=== PATIENT | male | born 1945 | race Caucasian/White ===

== ENCOUNTER 2018-04-21 14:49 | Emergency (ER) | payer OTHER ==
[~2018-04-21] VITALS: Ht 170.2 cm; Wt 76.0 kg
[2018-04-21] MEDS ORDERED: CRESTOR20 MG PO (15:04)
[2018-04-21] MEDS ORDERED: ADALAT CC PO (15:04)
[2018-04-21] MEDS ORDERED: PROCA PO (15:04)
[2018-04-21] MEDS ORDERED: JANUMET XR1 TA1 PO (15:05)
[2018-04-21] MEDS ORDERED: TUDORZA PR400 MCG/AC IN (15:06)
[2018-04-21] MEDS ORDERED: SYMBICORT1 AE1 IN (15:07)
[2018-04-21] MEDS ORDERED: PERINDOPRIL PO (15:08)
[2018-04-21 16:11] LABS: HEMATOCRIT 34.2 % (39.0-50.0); HEMOGLOBIN 11.6 g/dl (14.0-18.0); IMMATURE GRANULOCYTES 0.5 % (0.0-5.0); MEAN CELL VOLUME 94.5 fL CALC (80.0-100.0); MEAN CORPUSCULAR HGB CONC 33.9 g/L CALC (32.0-36.0); NEUT# 4.21 thou/uL (1.82-7.42); RED BLOOD COUNT 3.62 mill/uL (4.70-6.10); RED CELL DISTRI WIDTH 13.3 % (11.5-15.5)
[2018-04-21 16:12] LABS: URINE BILIRUBIN - DIPSTICK NEGATIVE (NEGATIVE); URINE BLOOD DIPSTICK NEGATIVE (NEGATIVE); URINE COLOR YELLOW; URINE GLUCOSE - DIPSTICK NEGATIVE (NEGATIVE); URINE KETONE NEGATIVE (NEGATIVE); URINE LEUK ESTERASE NEGATIVE (NEGATIVE); URINE NITRITE - DIPSTICK NEGATIVE (Negative); URINE PROTEIN - DIPSTICK NEGATIVE (NEG-TRACE); URINE UROBILINOGEN - DIPSTICK 0.2 E.U./dL (0.2)
[2018-04-21 16:28] LABS: ALBUMIN 4.3 g/dL (3.2-5.0); BILIRUBIN, TOTAL 0.5 mg/dL (0.0-1.4); POTASSIUM 4.7 mmol/l (3.5-5.1)
[2018-04-21] MEDS ORDERED: HYOSCYAMINE0.125 M3 PO (18:39)
[2018-04-21] MEDS ORDERED: CITRATE OF MEGNESIA PO (18:39)
[2018-04-21 18:43] VITALS: BP 151/72
== END 2018-04-21 18:45 | disposition home or self-care (01) | DRG 392 ==
LOC: ED 14:49
PROVIDERS: Family Medicine
DX: K52.9 Noninfective gastroenteritis and colitis, unspecified (principal); K59.00 Constipation, unspecified; I10 Essential (primary) hypertension; E11.9 Type 2 diabetes mellitus without complications; J45.909 Unspecified asthma, uncomplicated